=== PATIENT | female | born 1955 | race Caucasian/White ===

== ENCOUNTER → 2016-09-21 | Outpatient (CLI) | payer OTHER | END | disposition home or self-care (01) | LOC: C.LAB1850 14:25 | PROVIDERS: ATTEND Psychiatry & Neurology Neurology | DX: E53.8 Deficiency of other specified B group vitamins (principal) ==

== ENCOUNTER → 2017-03-29 | Outpatient (CLI) | payer OTHER ==
[2017-03-29 15:35] LABS: HEMATOCRIT 37.7 % (37-47); MEAN CORPUSCULAR HEMOGLOBIN 28.3 pg (25-34); MEAN CORPUSCULAR HGB CONC 33.7 g/dl (32-36); MEAN PLATELET VOLUME 10.3 fL (7.4-10.4); PLATELET COUNT 242 K/uL (130-400); RED BLOOD COUNT 4.49 M/uL (4.2-5.4); WHITE BLOOD COUNT 4.23 K/uL (4.8-10.8)
[2017-03-29 16:01] LABS: ALT/SGPT 23 U/L (12-78); AST/SGOT 16 U/L (15-37); BLOOD UREA NITROGEN 16 mg/dl (7-18); BUN/CREATININE RATIO 23.7 (10-20); CALCIUM 8.5 mg/dl (8.5-10.1); CARBON DIOXIDE 26 mmol/L (21-32); CHLORIDE 109 mmol/L (98-107); CREATININE 0.68 mg/dl (0.60-1.20); GLUCOSE 82 mg/dl (70-99); POTASSIUM 3.9 mmol/L (3.5-5.1); SODIUM 142 mmol/L (136-145)
[2017-03-29 16:06] LABS: ALKALINE PHOSPHATASE 93 U/L (45-117); CHOLESTEROL 173 mg/dl (0-200); CHOLESTEROL/HDL RATIO 3.8; HDL CHOLESTEROL 46 mg/dl; LDL CHOLESTEROL CALCULATED 95 mg/dl; TRIGLYCERIDES 160 mg/dl (0-150); VERY LOW DENSITY LIPOPROT CALC 32 mg/dl
== END | disposition home or self-care (01) ==
LOC: C.LAB1850 14:02
PROVIDERS: ATTEND Family Medicine
DX: I10 Essential (primary) hypertension (principal); E78.5 Hyperlipidemia, unspecified; E55.9 Vitamin D deficiency, unspecified; E53.8 Deficiency of other specified B group vitamins

== ENCOUNTER 2018-10-18 20:35 | Inpatient (IN) ==
[2018-10-18] MEDS ORDERED: ALBUT/IPRATROP 3MG/0.5MG NEB 3 ML VIAL INH STA (21:05)
[2018-10-18] MEDS ORDERED: methylPREDNISolone 125 MG/2 ML VIAL IV STA (21:05)
[2018-10-18 21:34] LABS: Basophils # (auto) 0.02 K/uL (0-0.2); Basophils % (auto) 0.2 %; Eosinophils # (auto) 0.05 K/uL (0-0.5); Eosinophils % (auto) 0.6 %; Hematocrit (blood only) 38.4 % (37-47); Hemoglobin 12.8 g/dL (12.0-16.0); Immature Granulocytes # (auto) 0.03 K/uL (0.00-0.02); Immature Granulocytes % (auto) 0.3 %; Lymphocytes # (auto) 0.49 K/uL (1.2-3.4); Lymphocytes % (auto) 5.7 %; Mean Corpuscular Hgb Conc 33.3 g/dL (32-36); Mean Corpuscular Volume 84.2 fL (80-100); Mean Platelet Volume 9.8 fL (7.4-10.4); Monocytes # (auto) 0.28 K/uL (0.11-0.59); Monocytes % (auto) 3.3 %; Neutrophils # (auto) 7.71 K/uL (1.4-6.5); Neutrophils % (auto) 89.9 %; Platelet Count 191 K/uL (130-400); RDW Coefficient of Variation 15.1 % (11.5-14.5); RDW Standard Deviation 46.7 fL (36.4-46.3); Red Blood Count 4.56 M/uL (4.2-5.4); White Blood Count 8.58 K/uL (4.8-10.8)
[2018-10-18 21:45] LABS: INR 1.9 (0.9-1.1); Partial Thromboplastin Ratio 1.3; Partial Thromboplastin Time 34.9 Seconds (21.0-31.0)
--- NOTE | 2018-10-18 21:45 | XRay Report ---
XR chest 1V portable HISTORY: Dyspnea COMPARISON: None. FINDINGS: The cardiac silhouette is mildly enlarged. Calcified right peritracheal lymph nodes are not ed. No focal lung consolidations to suggest pneumonia. Mild central pulmonary vascular congestion wit hout overt edema. A few bibasilar linear densities favor scarring or atelectasis. IMPRESSION: Cardiomegaly with mild central pulmonary vascular congestion. Electronically signed by: Luis Felipe Thomas M.D. 10/18/2018 9:44 PM
[2018-10-18 21:55] LABS: Alanine Aminotransferase 25 U/L (12-78); Albumin Level 3.7 gm/dl (3.4-5.0); Aspartate Aminotransferase 17 U/L (15-37); BUN Creatinine Ratio 18.9 (10-20); Blood Urea Nitrogen 16 mg/dl (7-18); Calcium 8.9 mg/dl (8.5-10.1); Carbon Dioxide 26 mmol/L (21-32); Chloride 107 mmol/L (98-107); Creatinine Clr Calc Pharmacy 88.8 ml/min; Est GFR (Non-African American) 75.1; Glucose 105 mg/dl (70-99); Magnesium 2.2 mg/dl (1.8-2.4); Potassium 3.9 mmol/L (3.5-5.1); Sodium 139 mmol/L (136-145)
[2018-10-18 21:59] LABS: Alkaline Phosphatase 90 U/L (45-117); Bilirubin,Total 0.8 mg/dl (0.2-1); Globulin 3.7 gm/dl (2.5-4.0); Total Protein 7.4 gm/dl (6.4-8.2); Troponin I < 0.015 ng/ml (0-0.045)
[2018-10-18] MEDS ORDERED: OPTIRAY 320 125ml IV PRN (23:28)
[2018-10-18] MEDS ORDERED: cefTRIAXone SODIUM 1,000 MG/50 ML BAG IV STA (23:48)
[2018-10-18] MEDS ORDERED: AZITHROMYCIN 500 MG in DEXTROSE 5% 250 ML IV ONE (23:48)
--- NOTE | 2018-10-19 00:32 | History & Physical Report ---
Date of Service October 19, 2018 Assessment & Plan (1) Pneumonia: 63 y/o F Hx paroxysmal AF, HTN, obese. She describes sinus congestion for a few weeks. Today she developed a cough and mild SOB and presented to an urgent care center for evaluation. When at the clinic she developed a hot fla sh. She states that this is not unusual for her and when this happens, she tends to lie down on the floor to cool off. Despite being at the urgent care center, she employed the same technique. This created some alarm at the clinic and she was diverted to the ER via ambulance. It was noted that her oxygen saturation was in the high 80s. She does believe she had a fever. She denies CP but does state that she had a run of AF the prior evening. A CXR did not reveal any acute abnormalities. A CTA was obtained due to her hypoxia and taking into consideration a recent trip to [place]. This did not reveal a PE, which is not entirely surprising considering she takes Coumadin daily, however, a RUL infiltrate became apparent. The pot had markedly improved following a few neb treatments in the ER. DC was considered, however, her oxygen saturation came down to 87% when she was ambulated around the ER. She also described some lightheadedness with exertion. 1) Pneumonia with hypoxia - placed on Abx, scheduled nebs, 02 protocol. Would check a walking pulse ox daily prior to decision on DC 2) Paroxysmal AF - sinus on admission - INR 1.9 - cont Coumadin, Metoprolol Full code - Coumadin prophylaxis Total time for this admit including review of labs, meds, imaging, records - discussion with pt and ER attending - 38 min Present on Admission?: Yes (2) Hypoxia: Present on Admission?: Yes History of Present Illness Chief Complaint: Cough, SOB, hot flash Primary Care Provider: NO PCP 63 y/o F Hx paroxysmal AF, HTN, obese. She describes sinus congestion for a few weeks. Today she developed a cough and mild SOB and presented to an urgent care center for evaluation. When at the clinic she developed a hot flash. She states that this is not unusual for her and when this happens, she tends to lie down on the floor to cool off. Despite being at the urgent care center, she employed the same technique. This created some alarm at the clinic and she was diverted to the ER via ambulance. It was noted that her oxygen saturation was in the high 80s. She does believe she had a fever. She denies CP but does state that she had a run of AF the prior evening. A CXR did not reveal any acute abnormalities. A CTA was obtained due to her hypoxia and taking into consideration a recent trip to [place]. This did not reveal a PE, which is not entirely surprising considering she takes Coumadin daily, however, a RUL infiltrate became apparent. The pot had markedly improved following a few neb treatments in the ER. DC was considered, however, her oxygen saturation came down to 87% when she was ambulated around the ER. She also described some lightheadedness with exertion. PMH: 1) Paroxysmal AF 2) HTN 3) Morbid obesity Surgical: 1) Tonsillectomy 2) Ex lap due to enlarged ovary Social: Does not drink or smoke Family: Father - believed due to [place] Mother due to CHF Allergies Allergy/AdvReac Type Severity Reaction Status Date / Time clonazepam Allergy Unknown Unknown Verified 10/18/18 23:49 doxycycline Allergy Unknown Unknown Verified 10/18/18 23:50 moxifloxacin Allergy Unknown Unknown Verified 10/18/18 23:51 Home Medications Home Medications Medication Instructions Recorded Confirmed Type Ortho Biotic 20 units PO Q2D 10/18/18 10/19/18 History amlodipine-benazepril 1 cap PO DAILY 10/18/18 10/18/18 History aspirin 81 mg PO DAILY 10/18/18 10/18/18 History coQ10 (ubiquinol) 100 mg PO BID 10/18/18 10/18/18 History ferrous sulfate 325 mg PO DAILY 10/18/18 10/18/18 History metoprolol succinate 50 mg PO DAILY 10/18/18 10/18/18 History scopolamine base [Transderm-Scop] 1.5 mg TRANSDERMAL Q72H PRN 10/18/18 10/18/18 History sertraline 150 mg PO DAILY 10/18/18 10/18/18 History warfarin 5 mg PO DAILY 10/18/18 10/18/18 History Arthro-8 Complex 1 dose pk PO DAILY 10/19/18 10/19/18 History mcbaoho-[id number]-aryj 1 tab PO DAILY 10/19/18 10/19/18 History Past Med/Surg History Medical History Asthma Eczema Social History Preferred Language: Palestinian marital status: Current Living Situation: Spouse Feels Safe at Home: Yes Smoking Status: Never smoker Review of Systems Review of Systems: Gen: Possible fever and hot flash as per HPI - no night sweats, rigors, fatigue, malaise, weight loss/gain ENT: + congestion - no throat pain, hearing loss Eyes: Denies acute visual changes CV: Denies CP, palpitations Pulmonary: SOB, cough GI: Denies N/V, diarrhea, constipation Neuro: Denies acute or unilateral weakness, acute gait impairment, headache or acute visual changes Musculoskeletal: Denies joint pain, inflammation Endocrine: Denies polydipsia, polyuria Skin: Denies acute rashes or ulcers Physical Exam Physical Exam: General: AAO x 3, no distress ENT: No erythema or exudates, no thrush Eyes: BUD, EOMI Head and neck: Normocephalic, atraumatic, No JVD, neck is supple. Chest/heart: Nontender, S1,2, RRR, no murmurs, no gallops Lungs: CTAB, no wheezing or crackles Abdomen: Nontender, nondistended, BS+ Neuro: AAO x 3, speech is clear, no unilateral weakness or loss of sensation, co ordination intact Musculoskeletal: No joint inflammation, muscle tenderness, FROM Skin: No acute rashes or ulcers Extremities: No clubbing, cyanosis, edema Results & Data Vital Signs (Past 12 Hours) Vital Signs Temp Pulse Pulse Pulse Resp Resp BP 10/19/18 00:15 76 10/19/18 00:05 108 H 20 10/18/18 22:24 80 20 10/18/18 21:11 10/18/18 20:45 99.3 F 71 20 130/70 BP Pulse Ox Pulse Ox 10/19/18 00:15 91 10/19/18 00:05 89 L 10/18/18 22:24 140/69 95 10/18/18 21:11 96 10/18/18 20:45 97 (1) Pneumonia Laterality: right Lung location: upper lobe of lung Pneumonia type: due to unspecified organism Qualified Code(s): J18.1 - Lobar pneumonia, unspecified organism
--- NOTE | 2018-10-19 00:33 | Emergency Department Note ---
Entered by Noel Bunch acting as a scribe for ED Provider Note CHIEF COMPLAINT: Nausea/Cough/SOB HISTORY OF PRESENT ILLNESS: The patient is a 63 year old female who presents to the Emergency Room with complaints of an intermittent cough and nausea. She states that her cough started a couple of weeks ago and she subsequently became nauseated today. She also notes some difficulty breathing and shortness of breath. She notes a history of asthma and adds that she has been using inhalers at home. She denies any chest pain. The patient notes that she has been traveling to [place] with her granddaughter recently who was recently diagnosed with Kelley Fever. The patient was referred to the ED from Urgent Care this evening. Report from EMS states that Urgent Care called for 911 as the patient had her shirt off and was laying on the floor. The patient confirms that story and states that she too k her shirt "mostly off" and laid on the ground as she got very "hot and flushed." She notes that she would normally do this at home if she got suddenly hot. The patient notes a history of Eczma and notes that her chest has been very itchy recently. Pt denies LOC, headache, visual changes, neck pain, vomiting, abdominal pain, back pain, melena, hematochezia, urinary symptoms, numbness, weakness, lymphadenopathy, or other complaints. REVIEW OF SYSTEMS: See HPI for pertinent positives and negatives. A total of ten systems were reviewed and were otherwise negative. PMHx/PSHx: Asthma Eczma SOCIAL HISTORY: Patient lives at home with . PHYSICAL EXAM: GENERAL: Awake, alert, mildly ill-appearing, in no distress HENT: Normocephalic, atraumatic. Oropharynx unremarkable. EYES: PERRL. Normal conjunctiva. Sclera non-icteric. NECK: Inspection normal. Non-tender. Supple. No nuchal rigidity. FROM. No masses. RESPIRATORY: Diminished breath sounds noted, coarse cough pressent. No wheezes. No rales. Increased respiratory effort noted. CARDIAC: Normal rate. Normal rhythm. No murmurs. No rubs. Extremities warm and well perfused. Pulses equal. No JVD. GI: Soft, non-distended. No tenderness to palpation. No rebound or guarding. No masses. RECTAL: Deferred. MUSCULOSKELETAL: Atraumatic. Chest examination reveals no tenderness. The back is symmetrical on inspection without obvious abnormality. There is no CVA tenderness to palpation. No joint edema. LOWER EXTREMITIES: Calves are equal size bilaterally and non-tender. No edema. No discoloration. NEURO: Normal sensorium. No sensory or motor deficits noted. SKIN: Eczematous-like rash on the chest and upper extremities. EMERGENCY DEPARTMENT COURSE: 2052: The patient was evaluated in room C4, and a complete history and physical examination were performed. 7: I reviewed the patient's case with Dr. Arshad - [facility]. He will evaluate the patient for further management. MEDICAL DECISION MAKING: Triage Nursing notes reviewed and agree them. Additional history obtained from the family. The patient's history was concerning for shortness of breath. Differential diagnosis: Etiologies such as pneumonia, COPD, reactive airway disease, CHF, cardiac i schemia, pulmonary embolism, pneumothorax, musculoskeletal, infections, gastrointestinal, as well as others were entertained. Physical examination: As above. The patient was requiring supplemental oxygen as she dipped down into the 87% range. ER treatment provided: Cardiac monitoring Supplemental oxygen DuoNeb Solu-Medrol On reassessment the patient felt better. IV Rocephin IV Zithromax Diagnostic interpretation by me: The electrocardiogram was negative for pathologic change. The labs revealed an unremarkable CBC and chemistry panel. INR slightly subtherapeutic. Troponin negative. Imaging studies: Chest x-ray performed without evidence of acute disease. CT PE study performed. No pulmonary embolus however there was a right upper lobe pneumonia noted. Consultation: A consultation was placed with the hospitalist. The case was discussed and diagnostics were reviewed. The patient was evaluated in the ER for further treatment. IMPRESSION: Pneumonia Hypoxia PLAN: Admit to [facility] Hospitalist service. The scribe's documentation has been prepared under my direction and personally reviewed by me in its entirety. I confirm that the note above accurately reflects all work, treatment, procedures, and medical decision making performed by me. Impression & Plan Pneumonia, Hypoxia Past Med/Surg History Medical History Asthma Eczema Social History Preferred Language: Maori marital status: Current Living Situation: Spouse Feels Safe at Home: Yes Smoking Status: Never smoker Results & Data Vital Signs Vital Signs - 24 hr 10/18/18 20:45 10/18/18 21:11 10/18/18 22:24 Temperature 37.4 C Temperature Source Oral Sepsis Recent Fever Within 48 Hours No Sepsis New/Unexplained Change in Mental Status No Sepsis Action Taken by Nursing No Action Required Pulse Rate 71 Pulse Rate [Apical] 80 Pulse Rate [Exercises] Respiratory Rate 20 20 Respiratory Rate [Exercises] Blood Pressure 130/70 Blood Pressure [Right Arm] 140/69 Blood Pressure Mean 90 Blood Pressure Mean [Right Arm] 92 Pulse Oximetry 97 96 95 Pulse Oximetry [Exercises] Oxygen Delivery Method Room Air Nasal Cannula Nasal Cannula Oxygen Flow Rate 2 10/19/18 00:05 10/19/18 00:15 Temperature Temperature Source Sepsis Recent Fever Within 48 Hours Sepsis New/Unexplained Change in Mental Status Sepsis Action Taken by Nursing Pulse Rate Pulse Rate [Apical] 76 Pulse Rate [Exercises] 108 H Respiratory Rate Respiratory Rate [Exercises] 20 Blood Pressure Blood Pressure [Right Arm] Blood Pressure Mean Blood Pressure Mean [Right Arm] Pulse Oximetry 91 Pulse Oximetry [Exercises] 89 L Oxygen Delivery Method Room Air Room Air Oxygen Flow Rate Home Medications Current Medication List: was personally reviewed by me Laboratory Data Attestation: I reviewed the patient's lab results. Result diagrams: 10/18/18 21:17 10/18/18 21:17 Lab Results 10/18/18 10/18/18 10/18/18 Range/Units 21:17 21:17 21:17 WBC 8.58 (4.8-10.8) K/uL RBC 4.56 (4.2-5.4) M/uL Hgb 12.8 (12.0-16.0) g/dL Hct 38.4 (37-47) % MCV 84.2 (80-100) fL MCH 28.1 (25-34) pg MCHC 33.3 (32-36) g/dL RDW Std Deviation 46.7 H (36.4-46.3) fL RDW Coeff of Michelle 15.1 H (11.5-14.5) % Plt Count 191 (130-400) K/uL MPV 9.8 (7.4-10.4) fL Immature Gran % (Auto) 0.3 % Neut % (Auto) 89.9 % Lymph % (Auto) 5.7 % Wilkinson % (Auto) 3.3 % Eos % (Auto) 0.6 % Baso % (Auto) 0.2 % Immature Gran # (Auto) 0.03 H (0.00-0.02) K/uL Neut # (Auto) 7.71 H (1.4-6.5) K/uL Lymph # (Auto) 0.49 L (1.2-3.4) K/uL Wilkinson # (Auto) 0.28 (0.11-0.59) K/uL Eos # (Auto) 0.05 (0-0.5) K/uL Baso # (Auto) 0.02 (0-0.2) K/uL PT 19.0 H (9.0-12.0) Seconds INR 1.9 H (0.9-1.1) APTT 34.9 H (21.0-31.0) Seconds PTT Ratio 1.3 Sodium 139 (136-145) mmol/L Potassium 3.9 (3.5-5.1) mmol/L Chloride 107 (98-107) mmol/L Carbon Dioxide 26 (21-32) mmol/L Anion Gap 6.0 (3-11) BUN 16 (7-18) mg/dl Creatinine 0.82 (0.6-1.2) mg/dl Est Cr Clr Drug Dosing 88.8 ml/min Est GFR ( Amer) 87.0 Est GFR (Non-Af Amer) 75.1 BUN/Creatinine Ratio 18.9 (10-20) Glucose 105 H (70-99) mg/dl POC Lactic Acid Bogdan (0.90-1.70) mmol/L Calcium 8.9 (8.5-10.1) mg/dl Magnesium 2.2 (1.8-2.4) mg/dl Total Bilirubin 0.8 (0.2-1) mg/dl AST 17 (15-37) U/L ALT 25 (12-78) U/L Alkaline Phosphatase 90 (45-117) U/L Troponin I < 0.015 (0-0.045) ng/ml Total Protein 7.4 (6.4-8.2) gm/dl Albumin 3.7 (3.4-5.0) gm/dl Globulin 3.7 (2.5-4.0) gm/dl Albumin/Globulin Ratio 1.0 (0.9-2) 10/18/18 Range/Units 21:30 WBC (4.8-10.8) K/uL RBC (4.2-5.4) M/uL Hgb (12.0-16.0) g/dL Hct (37-47) % MCV (80-100) fL MCH (25-34) pg MCHC (32-36) g/dL RDW Std Deviation (36.4-46.3) fL RDW Coeff of Michelle (11.5-14.5) % Plt Count (130-400) K/uL MPV (7.4-10.4) fL Immature Gran % (Auto) % Neut % (Auto) % Lymph % (Auto) % Wilkinson % (Auto) % Eos % (Auto) % Baso % (Auto) % Immature Gran # (Auto) (0.00-0.02) K/uL Neut # (Auto) (1.4-6.5) K/uL Lymph # (Auto) (1.2-3.4) K/uL Wilkinson # (Auto) (0.11-0.59) K/uL Eos # (Auto) (0-0.5) K/uL Baso # (Auto) (0-0.2) K/uL PT (9.0-12.0) Seconds INR (0.9-1.1) APTT (21.0-31.0) Seconds PTT Ratio Sodium (136-145) mmol/L Potassium (3.5-5.1) mmol/L Chloride (98-107) mmol/L Carbon Dioxide (21-32) mmol/L Anion Gap (3-11) BUN (7-18) mg/dl Creatinine (0.6-1.2) mg/dl Est Cr Clr Drug Dosing ml/min Est GFR ( Amer) Est GFR (Non-Af Amer) BUN/Creatinine Ratio (10-20) Glucose (70-99) mg/dl POC Lactic Acid Bogdan 1.17 (0.90-1.70) mmol/L Calcium (8.5-10.1) mg/dl Magnesium (1.8-2.4) mg/dl Total Bilirubin (0.2-1) mg/dl AST (15-37) U/L ALT (12-78) U/L Alkaline Phosphatase (45-117) U/L Troponin I (0-0.045) ng/ml Total Protein (6.4-8.2) gm/dl Albumin (3.4-5.0) gm/dl Globulin (2.5-4.0) gm/dl Albumin/Globulin Ratio (0.9-2) Administered Medications Ioversol (Optiray 320 125ml) 125 ml IV ONCE PRN PRN Reason: Interaction Checking Stop: 10/22/18 23:27 Last Admin: 10/18/18 23:28 Dose: 94 ml Documented by: [id number] Discontinued Medications Albuterol (Duoneb) 3 ml INH NOW STA Stop: 10/18/18 21:06 Last Admin: 10/18/18 21:30 Dose: 3 ml Documented by: [id number] Ceftriaxone Sodium (Rocephin) 1,000 mg in 50 mls @ 100 mls/hr IV NOW STA Stop: 10/19/18 00:17 Last Admin: 10/19/18 00:13 Dose: 100 mls/hr Documented by: [id number] Methylprednisolone (Solumedrol) 125 mg IV NOW STA Stop: 10/18/18 21:06 Last Admin: 10/18/18 21:30 Dose: 125 mg Documented by: [id number] Imaging Data Radiologist's Impression: XR chest 1V portable HISTORY: Dyspnea COMPARISON: None. FINDINGS: The cardiac silhouette is mildly enlarged. Calcified right peritracheal lymph nodes are noted. No focal lung consolidations to suggest pneumonia. Mild central pulmonary vascular congestion without overt edema. A few bibasilar linear densities favor scarring or atelectasis. IMPRESSION: Cardiomegaly with mild central pulmonary vascular congestion. Electronically signed by: Luis Felipe Thomas M.D. 10/18/2018 9:44 PM CTA CHEST: No pericardial effusion. Mediastinal and hilar adenopathy. Pneumonia involving the anterior aspect of the right upper lobe. Small hiatal hernia. Radiologist: Joey Ortega MD ECG Data Attestation: I personally reviewed and interpreted this ECG as follows: Indication: SOB/dyspnea Rate (beats per minute): 69 Rhythm: normal sinus Findings: + other (Biatrial enlargement); no PAC, no PVC, no ST depression, no ST elevation and no acute ischemic change Discharge Plan Visit Data Chief Complaint: Flu Like Symptoms Stated Complaint: FLU SX, FEVER ED Provider: Ross Rodríguez Discharge Problem: Pneumonia, Hypoxia Patient Disposition: Being Evaluated by Hospitalist Forms Stand Alone Forms: My [facility] Prescriptions Prescriptions: No Action ferrous sulfate 325 mg (65 mg iron) Tablet 325 mg PO DAILY RF: 0 amlodipine-benazepril 5-20 mg Capsule 1 cap PO DAILY RF: 0 sertraline 100 mg Tablet 150 mg PO DAILY RF: 0 metoprolol succinate 50 mg Tablet Extended Release 24 Hr 50 mg PO DAILY RF: 0 warfarin 5 mg Tablet 5 mg PO DAILY RF: 0 aspirin 81 mg Tablet,Delayed Release (Dr/Ec) 81 mg PO DAILY RF: 0 scopolamine base [Transderm-Scop] 1 mg over 3 days Patch 3 Day 1.5 mg TRANSDERMAL Q72H PRN (Reason: travel only) RF: 0 coQ10 (ubiquinol) 100 mg Capsule 100 mg PO BID RF: 0 Ortho Biotic 20 units PO Q2D RF: 0 Arthro-8 Complex 1 dose pk PO DAILY RF: 0 [id number]-[id number]-[id number] 333-133-8.3 mg Tablet 1 tab PO DAILY RF: 0 Referrals Referrals: PCP,NO [Primary Care Provider] - Discharge Problem: Pneumonia Qualifiers: Pneumonia type: due to unspecified organism Laterality: right Lung location: upper lobe of lung Qualified Code(s): J18.1 - Lobar pneumonia, unspecified organism The scribe's documentation has been prepared under my direction and personally reviewed by me in its entirety. I confirm that the note above accurately reflects all work, treatment, procedures, and medical decision making performed by me.
[2018-10-19] MEDS ORDERED: ZOLPIDEM TARTRATE 5 MG TAB PO PRN (01:32)
[2018-10-19] MEDS ORDERED: ALBUTEROL 0.083% NEBU SOLN 3 ML VIAL NEB PRN (01:32)
[2018-10-19] MEDS ORDERED: AZITHROMYCIN 500 MG in DEXTROSE 5% 250 ML IV SCH ×2 (01:32→21:00)
[2018-10-19] MEDS ORDERED: ALUMINUM/MAGNESIUM SUSP 30 ML UDC PO PRN (01:32)
[2018-10-19] MEDS ORDERED: MAGNESIUM HYDROXIDE SUSP 30 ML UDC PO PRN (01:32)
[2018-10-19] MEDS ORDERED: cefTRIAXone SODIUM 1,000 MG/50 ML BAG IV SCH (01:32)
--- NOTE | 2018-10-19 06:50 | CT Scan Report ---
CT angio chest PE protocol CLINICAL HISTORY: 63 years-old Female presenting with shortness of breath, hypoxia, recent travel adia g distance travel, clinical concern for pulmonary bolus. TECHNIQUE: Multidetector CT angiography of the chest was performed after administration of intravenou s contrast. 3-D volumetric and/or maximum intensity projection (MIP) images were subsequently reconst ructed for review. IV contrast: 94 mL of Optiray 320. One or more dose lowering techniques were used consistent with the principles of ALARA (as low as reasonably achievable), including automatic exposu re control, mA or kV adjustment to individual patient size, and/or use of iterative reconstruction. COMPARISON: Chest x-ray performed earlier the same day. CT DOSE (mGy.cm): The estimated cumulative dose is 793.51 mGy.cm. FINDINGS: Hat And Cap Drying Room Attendant topogram: Unremarkable. Pulmonary vasculature: The study is suboptimal for the assessment of the pulmonary vascular tree secondary to timing of the contrast bolus and respiratory motion artifact. Allowing for limited image quality, no central fillin g defect to suggest pulmonary embolus. Main pulmonary artery is not enlarged. No flattening of the in terventricular septum. No intracardiac filling defect. No reflux of contrast into the hepatic veins. Remaining chest: Soft tissues: Normal thyroid and thoracic inlet. Enlarged mediastinal and bilateral hilar lymph nodes . An index node in the left paratracheal/aortopulmonary window region measures 1.3 cm in short axis. Atherosclerosis of the aorta. Normal heart size. Trace coronary artery calcification. No pericardial or pleural effusion. Hepatic steatosis. Small sliding type hiatal hernia. Lungs and airways: No pneumothorax. Central airways patent allowing for the expiratory phase of respi ration. Mild bronchial wall thickening diffusely. Pulmonary arteries mildly enlarged relative to becky cent bronchi. Prominent mosaic attenuation throughout the lungs suggesting small airways disease. No interlobular septal thickening. Extensive patchy groundglass and solid consolidation in the anterior segment of the right upper lobe. There is also a lesser degree of patchy groundglass opacity elsewher e. The more nodular regions of groundglass opacity are also likely related to this process rather erica n representing a separate groundglass nodule (for example series 4 image 261). Bibasilar atelectasis greater on the right. Musculoskeletal: Degenerative changes of the spine. IMPRESSION: 1. Allowing for suboptimal image quality, no evidence of pulmonary embolus. 2. Right upper lobe pneumonia with a minimal degree of patchy infiltrates elsewhere. 3. Groundglass nodular appearance of some of the infiltrates warrants follow-up. However, this is hi ghly likely to be related to the infectious process rather than representing a separate nodule. 4. Mediastinal and bilateral hilar lymphadenopathy. This is most likely reactive. Follow-up should B E obtained to ensure resolution. 5. Hepatic steatosis. Electronically signed by: Abiel Waller M.D. 10/19/2018 6:49 AM
[2018-10-19] MEDS: ALBUT/IPRATROP 3MG/0.5MG NEB 3 ML VIAL NEB SCH ×4 (06:56→19:00)
[2018-10-19] MEDS: SERTRALINE HCL 100 MG TABLET PO SCH (09:02)
[2018-10-19] MEDS: METOPROLOL SUCC 50MG EXT REL TAB PO SCH (09:02)
[2018-10-19] MEDS: AMLODIPINE BESYLATE 5 MG TAB PO SCH (09:03)
[2018-10-19] MEDS: ENALAPRIL MALEATE 10 MG TAB PO SCH (09:03)
[2018-10-19] MEDS: ASPIRIN 81 MG ECTAB PO SCH (09:03)
[2018-10-19] MEDS: WARFARIN SOD 5 MG TAB PO SCH (15:58)
[2018-10-19 20:31] LABS: Appearance Urine Cloudy (Clear); Bacteria Urine Automated Negative (Negative); Bilirubin Urine Negative (Negative); Blood Urine Negative (Negative); Color Urine Yellow; Epithelial Cell Urine Auto >30 /lpf (0-5); Glucose Urine UA Negative (Negative); Ketones Urine Trace (Negative); Leukocyte Esterase Urine 2+ (Negative); Nitrite Urine Negative (Negative); Protein Urine Negative (Negative); RBC Urine Automated 0-4 /hpf (0-4); Specific Gravity Urine 1.031 (1.000-1.030); Urobilinogen Urine Negative (Negative); pH Urine 5.5 (4.5-7.5)
[2018-10-19] MEDS: AZITHROMYCIN 250 MG TAB PO SCH (20:37)
[2018-10-19] MEDS: cefTRIAXone SODIUM 2,000 MG in DEXTROSE 5% 50 ML IV SCH (20:43)
[2018-10-19] MEDS ORDERED: cefTRIAXone SODIUM 1,000 MG in DEXTROSE 5% 50 ML IV SCH (21:00)
[2018-10-19] MEDS: ACETAMINOPHEN 325 MG TAB PO PRN (21:32)
[2018-10-20] MEDS: ACETAMINOPHEN 325 MG TAB PO PRN (04:05)
[2018-10-20] MEDS ORDERED: METOPROLOL TARTRATE 1 MG/ML VIAL IV STA ×4 (04:38→17:23)
--- NOTE | 2018-10-20 06:01 | Progress Note ---
Date of Service October 20, 2018 Subjective Pt had episode of AFib with RVR around 4:30 this AM Pt had hx of pAFib Pt was asymptomatic, denied any sob, palpitations or cp Dose of lopressor 5mg IV was ordered with improvement in HR from 150-130 Given HR remained elevated another dose of lopressor 5mg IV was ordered Results & Data Vital Signs (Past 12 Hours) Vital Signs Temp Pulse Pulse Resp BP Pulse Ox 10/20/18 05:42 37.4 C 153 H 125/85 10/20/18 05:01 136 H 124/81 10/20/18 04:53 155 H 120/78 10/20/18 04:16 80 18 141/81 H 92 10/20/18 03:55 37.7 C H 10/20/18 00:00 66 18 93 10/19/18 23:21 37.7 C H 76 18 118/70 92 10/19/18 22:55 37.5 C 10/19/18 22:23 38.1 C H 10/19/18 21:30 38.1 C H 10/19/18 19:53 37.1 C 84 20 149/65 H 90 10/19/18 19:02 83 20 87 L 10/19/18 18:49 37.4 C 10/19/18 18:21 89 L Resident Activity Tracking Resident Involvement: Resident Care Provided Care Provided: Adult Hospital Medicine
[2018-10-20 06:15] LABS: INR 1.7 (0.9-1.1); Prothrombin Time 17.2 Seconds (9.0-12.0)
[2018-10-20] MEDS: ALBUT/IPRATROP 3MG/0.5MG NEB 3 ML VIAL NEB SCH (07:37)
[2018-10-20] MEDS: METOPROLOL SUCC 50MG EXT REL TAB PO SCH (07:41)
[2018-10-20] MEDS: SERTRALINE HCL 100 MG TABLET PO SCH (07:41)
[2018-10-20] MEDS: AZITHROMYCIN 250 MG TAB PO SCH (07:42)
[2018-10-20] MEDS: ASPIRIN 81 MG ECTAB PO SCH (07:42)
[2018-10-20] MEDS ORDERED: LEVALBUTEROL 1.25MG/0.5ML NEB NEB PRN (07:56)
[2018-10-20] MEDS: AMLODIPINE BESYLATE 5 MG TAB PO SCH (12:05)
[2018-10-20] MEDS: ENALAPRIL MALEATE 10 MG TAB PO SCH (12:05)
[2018-10-20] MEDS ORDERED: WARFARIN SOD 2.5 MG TAB PO SCH (16:00)
--- NOTE | 2018-10-20 16:07 | Cardiology Consultation ---
Date of Consultation October 20, 2018 Assessment & Plan (1) Atrial fibrillation: This patient has a known history of paroxysmal atrial fibrillation and developed atrial fibrillation while hospitalized for pneumonia. Her ventricular rates are quite high but she is relatively asymptomatic. We had a long discussion regarding options for treatment. She does appear to have fairly frequent episodes of atrial fibrillation and adopting a rhythm control strategy would be reasonable. However, she has some reservations about changing medical therapy and concerns regarding medical therapy in general. I think she would be served well by either dofetilide or dronedarone. Flecainide would be a possibility although given her age and comorbidities this would need to be used with caution. I do not think initiation of antiarrhythmic therapy during this hospitalization is warranted given the subtherapeutic nature of her INR. However, she converts spontaneously to sinus rhythm there would be an opportunity for initiation. I provided her with the names of these medicines she wishes to do some research before making a decision. In the short term, we could attempt more aggressive rate control with a diltiazem infusion. She went to wait few more hours to see if she would convert back to sinus rhythm. I think this is reasonable given her absence of symptoms and hemodynamic stability. She will likely return to a sinus rhythm within the next 24 hours. If she does not, I would employ diltiazem infusion rather than additional doses of metoprolol. She should be continued on her anticoagulation with warfarin. Aspirin can be discontinued. If she converts to a sinus rhythm she can be maintained on her usual outpatient medical regimen without change unless she requests initiation of antiarrhythmic therapy or discussion regarding rhythm control. I will be with the hospital for the next 2 days. If there are additional concerns regarding rhythm or rate control please contact the on-call biomed tech, Dr. Freddy Aragon. History of Present Illness Reason for Consultation: Atrial fibrillation Requesting Physician: Lincoln Attending Physician: Venancio Stark History of Present Illness The patient is a 63-year-old woman with a history of paroxysmal atrial fibrillation who recently developed atrial fibrillation. Recently the patient has been struggling with upper respiratory congestion. She presented to an outpatient urgent care with symptoms of congestion and cough. She was discovered to be hypoxic at that facility and sent to [facility] for evaluation. A CT PE protocol was performed to evaluate her symptoms and hypoxia and she was noted to have a right upper lobe infiltrate. She was admitted for treatment of pneumonia. Very early this morning the patient developed atrial fibrillation and associated high ventricular rates. The patient was aware of the arrhythmia. She generally has a few episodes of atrial fibrillation every month. These are characterized by sense of palpitation and tachycardia. She also has an element of activity intolerance that is fairly mild with atrial fibrillation. She states that performing her usual activities or extended walks will result in some dyspnea when she has atrial fibrillation. Occasionally she has some mild dizziness and lightheadedness. She has not felt pre syncopal or actually suffered syncope. She has no associated chest pain. Most her episodes will last less than 24 hours. She states she has had episodes which lasted 2-3 days. She knows that she has high ventricular rates during these episodes. In general she is an active individual was able to perform mild to moderate activity without limitation. She is able to ambulate without significant dyspnea most of the time. She is not describe overt orthopnea or paroxysmal nocturnal dyspnea. She has not had chest pain. She does feel that she is having more frequent episodes of atrial fibrillation perhaps of longer duration over the past few years. Allergies Allergy/AdvReac Type Severity Reaction Status Date / Time clonazepam Allergy Unknown Unknown Verified 10/18/18 23:49 doxycycline Allergy Unknown Unknown Verified 10/18/18 23:50 moxifloxacin Allergy Unknown Unknown Verified 10/18/18 23:51 Home Medications Home Medications Medication Instructions Recorded Confirmed Type Ortho Biotic 20 units PO Q2D 10/18/18 10/19/18 History amlodipine-benazepril 1 cap PO DAILY 10/18/18 10/18/18 History aspirin 81 mg PO DAILY 10/18/18 10/18/18 History coQ10 (ubiquinol) 100 mg PO BID 10/18/18 10/18/18 History ferrous sulfate 325 mg PO DAILY 10/18/18 10/18/18 History metoprolol succinate 50 mg PO DAILY 10/18/18 10/18/18 History scopolamine base [Transderm-Scop] 1.5 mg TRANSDERMAL Q72H PRN 10/18/18 10/18/18 History sertraline 150 mg PO DAILY 10/18/18 10/18/18 History warfarin 5 mg PO DAILY 10/18/18 10/18/18 History Arthro-8 Complex 1 dose pk PO DAILY 10/19/18 10/19/18 History gtmwbiz-[id number]-kjjg 1 tab PO DAILY 10/19/18 10/19/18 History Patient History Medical History Asthma Eczema Social History Preferred Language: Nepali Communication Ability: Effective [employer] Member Required: No Beliefs That Will Affect Care: None marital status: Current Living Situation: Spouse Other Information That Helps Us Care for You: No Feels Safe at Home: Yes Safety Concerns: Feels Safe At This Time Smoking Status: Never smoker Hx Alcohol Use: No Hx Substance Use: No Review of Systems Review of Systems: All systems reviewed & are unremarkable except as noted in HPI & below Currently she feels palpitations, but no chest pain. She continues to have a cough. She states that her breathing is somewhat improved since admission. Physical Exam Physical Exam: She is alert and oriented x3. Mood affect appear normal. She answered all questions appropriately. Obese HEENT: Sclerae are anicteric. Pupils are equal and reactive to light and accommodation. Extraocular movements were intact. Neuro: Cranial nerves intact Neck: Examination of the submandibular region did not reveal any significant lymphadenopathy. Carotids are palpable bilaterally and free of bruits on auscultation. There was no evidence of jugular venous distention. The thyroid was not enlarged. Lungs: Some reduced breath sounds on the right. She has coarse rhonchorous breath sounds with expiration. She has normal respiratory effort without use of accessory muscles. There is normal pulmonary excursion. Cardiac: Irregularly irregular and tachycardic. No murmurs. Abdomen: The abdomen was soft and nontender. Extremities: Patient has bilateral radial pulses that are equal in intensity. There is no evidence cyanosis or clubbing. There was no evidence of significant peripheral edema bilaterally. Skin: There are no rashes noted on examination today. Results & Data Vital Signs (Past 12 Hours) Vital Signs Temp Pulse Pulse Pulse Resp BP BP 10/20/18 15:13 37.7 C H 134 H 20 104/75 10/20/18 11:46 87 18 10/20/18 11:36 37.6 C H 119 H 16 128/78 10/20/18 11:05 128 H 128/78 10/20/18 07:38 104 H 10/20/18 07:35 134 H 118/79 04/26/19 07:29 37.2 C 153 H 22 92/65 L 10/20/18 06:35 130 H 128/78 10/20/18 06:09 132 H 113/73 10/20/18 05:42 37.4 C 153 H 125/85 10/20/18 05:01 136 H 124/81 10/20/18 04:53 155 H 120/78 10/20/18 04:16 80 18 141/81 H Pulse Ox 10/20/18 15:13 94 10/20/18 11:46 95 10/20/18 11:36 92 10/20/18 11:05 10/20/18 07:38 97 10/20/18 07:35 10/20/18 07:29 93 10/20/18 06:35 10/20/18 06:09 10/20/18 05:42 10/20/18 05:01 10/20/18 04:53 10/20/18 04:16 92 Laboratory Results Abnormal Lab Results 10/19/18 10/20/18 10/20/18 20:18 05:31 10:41 PT 17.2 H INR 1.7 H Troponin I < 0.015 Urine Color Yellow Urine Appearance Cloudy H Urine pH 5.5 Ur Specific [place] 1.031 H Urine Protein Negative Urine Glucose (UA) Negative Urine Ketones Trace H Urine Blood Negative Urine Nitrite Negative Urine Bilirubin Negative Urine Urobilinogen Negative Ur Leukocyte Esterase 2+ H Urine WBC (Auto) 10-30 H Urine RBC (Auto) 0-4 U Hyaline Cast (Auto) 5-10 H U Epithel Cells (Auto) >30 H Urine Bacteria (Auto) Negative Ur Renal Epithelial Cell Not Reportable Diagnostic Findings CT PE protocol obtained at the time admission revealed right upper lobe infiltrate. No evidence of pulmonary embolus Stress echocardiogram performed at [facility] in 2013 revealed preserved LV systolic function. No valvular disease was mentioned in the report. ECG Additional Comments: Atrial fibrillation rapid ventricular response.
[2018-10-20] MEDS: WARFARIN SOD 5 MG TAB PO SCH (16:21)
[2018-10-20] MEDS: cefTRIAXone SODIUM 2,000 MG in DEXTROSE 5% 50 ML IV SCH (20:33)
--- NOTE | 2018-10-20 21:52 | Hospitalist Progress Note ---
Date of Service October 20, 2018 Assessment & Plan (1) Pneumonia: 63 y/o F Hx paroxysmal AF, HTN, obese. She describes sinus congestion for a few weeks. Today she developed a cough and mild SOB and presented to an urgent care center for evaluation. When at the clinic she developed a hot fla sh. She states that this is not unusual for her and when this happens, she tends to lie down on the floor to cool off. Despite being at the urgent care center, she employed the same technique. This created some alarm at the clinic and she was diverted to the ER via ambulance. It was noted that her oxygen saturation was in the high 80s. She does believe she had a fever. She denies CP but does state that she had a run of AF the prior evening. A CXR did not reveal any acute abnormalities. A CTA was obtained due to her hypoxia and taking into consideration a recent trip to [place]. This did not reveal a PE, which is not entirely surprising considering she takes Coumadin daily, however, a RUL infiltrate became apparent. The pot had markedly improved following a few neb treatments in the ER. DC was considered, however, her oxygen saturation came down to 87% when she was ambulated around the ER. She also described some lightheadedness with exertion. 1) Pneumonia with hypoxia - placed on Abx, -Switched azithromycin to oral. Will continue IV ceftriaxone. -Patient continues to require oxygen. -Will continue IV steroids but will taper. 2) Paroxysmal AF - sinus on admission -Now in paroxysmal A. fib -Patient has required multiple doses of IV lopressor but HR remains elevated - cont Coumadin, Metoprolol -will monitor INR -consult cardio. -check trop for possible demand ischemia Full code - Coumadin prophylaxis Spent 45 minutes in management of patient (2) Hypoxia: Subjective 63 yo female reports that she continues to be complaining of a cough. She reports that her chest is loosening. She is concerned over her elevated heart rate. It has been elevated since early AM. Patient reports she normally has episodes where her HR is elevated, but it subsides in about 12 hours hours. Patient reports she does not like to take more medicine than needed. Review of Systems Review of Systems: Gen: Possible fever and hot flash as per HPI - no night sweats, rigors, fatigue, malaise, weight loss/gain ENT: + congestion - no throat pain, hearing loss Eyes: Denies acute visual changes CV: Denies CP, palpitations Pulmonary: SOB, cough GI: Denies Vomiting, diarrhea, constipation; is complaining of nausea. Neuro: Denies acute or unilateral weakness, acute gait impairment, headache or acute visual changes Musculoskeletal: Denies joint pain, inflammation Endocrine: Denies polydipsia, polyuria Skin: Denies acute rashes or ulcers Physical Exam Physical Exam: General: AAO x 3, no distress ENT: No erythema or exudates, no thrush Eyes: BUD, EOMI Head and neck: Normocephalic, atraumatic, No JVD, neck is supple. Chest/heart: Nontender, S1,2, RRR, no murmurs, no gallops Lungs: CTAB, no wheezing or crackles Abdomen: Nontender, nondistended, BS+ Neuro: AAO x 3, speech is clear, no unilateral weakness or loss of sensation, coordination intact Musculoskeletal: No joint inflammation, muscle tenderness, FROM Skin: No acute rashes or ulcers Extremities: No clubbing, cyanosis, edema Results & Data Vital Signs (Past 12 Hours) Vital Signs Temp Pulse Pulse Pulse Resp BP BP 10/20/18 19:00 37.4 C 107 H 20 113/76 10/20/18 17:37 119 H 116/84 10/20/18 17:22 116 H 10/20/18 16:45 132 H 10/20/18 15:13 37.7 C H 134 H 20 10/20/18 11:46 87 18 10/20/18 11:36 37.6 C H 119 H 16 10/20/18 11:05 128 H 128/78 BP Pulse Ox 10/20/18 19:00 95 10/20/18 17:37 10/20/18 17:22 116/84 94 10/20/18 16:45 10/20/18 15:13 104/75 94 10/20/18 11:46 95 10/20/18 11:36 128/78 92 10/20/18 11:05 (1) Pneumonia Laterality: right Lung location: upper lobe of lung Pneumonia type: due to unspecified organism Qualified Code(s): J18.1 - Lobar pneumonia, unspecified organism
[2018-10-21 02:29] LABS: INR 1.8 (0.9-1.1); Prothrombin Time 17.6 Seconds (9.0-12.0)
[2018-10-21] MEDS: SERTRALINE HCL 100 MG TABLET PO SCH (07:59)
--- NOTE | 2018-10-21 08:14 | Cardiology Progress Note ---
Date of Service October 21, 2018 Assessment & Plan (1) Atrial fibrillation: She continues in AF> Some higher rates. Minimally symptomatic. Feeling better overall. She will likely convert to sinus at some point. If her rates continue to be above 110 consistently I woudl consider starting a diltiazem infusion. Alternatively, an oral dose of metoprolol tartrate (25mg) might be effective. Subjective The patient claims to be feeling better. She has less dyspnea. No chest pain. Some palpitaitons. Review of Systems Review of Systems: Per HPI. Coughing up some blood-tinged sputum. Physical Exam Physical Exam: Alert. Oriented. Lungs: No rales, but coarse expiratory upper airway sounds. Cardiac: Irregularly irregular. Results & Data Vital Signs (Past 12 Hours) Vital Signs Temp Pulse Pulse Resp BP Pulse Ox 10/21/18 07:46 95/65 L 10/21/18 07:17 36.6 C 100 H 20 139/106 H 93 10/21/18 04:00 36.9 C 112 H 20 106/72 95 10/20/18 23:00 36.8 C 116 H 22 110/84 93 Laboratory Results Abnormal Lab Results 10/20/18 10/20/18 10/21/18 10:41 18:47 02:07 PT 17.6 H INR 1.8 H Troponin I < 0.015 < 0.015 10/21/18 02:07 PT INR Troponin I < 0.015 ECG Additional Comments: Continued AF.
[2018-10-21] MEDS ORDERED: METOPROLOL TARTRATE 1 MG/ML VIAL IV STA (08:18)
[2018-10-21] MEDS: AMLODIPINE BESYLATE 5 MG TAB PO SCH ×2 (08:30→08:42)
[2018-10-21] MEDS: ENALAPRIL MALEATE 10 MG TAB PO SCH (08:30)
[2018-10-21] MEDS: AZITHROMYCIN 250 MG TAB PO SCH (08:31)
[2018-10-21] MEDS: METOPROLOL SUCC 50MG EXT REL TAB PO SCH (08:31)
--- NOTE | 2018-10-21 09:08 | Hospitalist Progress Note ---
Date of Service October 21, 2018 Assessment & Plan (1) Pneumonia: 63 y/o F Hx paroxysmal AF, HTN, obese. She describes sinus congestion for a few weeks. Today she developed a cough and mild SOB and presented to an urgent care center for evaluation. When at the clinic she developed a hot fla sh. She states that this is not unusual for her and when this happens, she tends to lie down on the floor to cool off. Despite being at the urgent care center, she employed the same technique. This created some alarm at the clinic and she was diverted to the ER via ambulance. It was noted that her oxygen saturation was in the high 80s. She does believe she had a fever. She denies CP but does state that she had a run of AF the prior evening. A CXR did not reveal any acute abnormalities. A CTA was obtained due to her hypoxia and taking into consideration a recent trip to [place]. This did not reveal a PE, which is not entirely surprising considering she takes Coumadin daily, however, a RUL infiltrate became apparent. The pot had markedly improved following a few neb treatments in the ER. DC was considered, however, her oxygen saturation came down to 87% when she was ambulated around the ER. She also described some lightheadedness with exertion. 1) Pneumonia with hypoxia - placed on Abx, -Switched azithromycin to oral. Will continue IV ceftriaxone. -Patient continues to require oxygen. -Patient does appear to be improving, but is now in rapid a. fib. 2) Paroxysmal AF - sinus on admission -Now in rapid A. fib -Patient has required multiple doses of IV lopressor but HR remains elevated -Will start diltiazem today Iv drip. - cont Coumadin, Metoprolol -will monitor INR -consult cardio. -check trop for possible demand ischemia: markers are negative. Patient did not respond to lopressor Full code - Coumadin prophylaxis Spent 35 minutes in management of patient (2) Hypoxia: Subjective D/W nurse, she continues to be tachycardic throughout the night. Patient reports that this is unusual for her as she normally only has short episodes of A. Fib. Usually last 12 hours or less. She reports being open to taking a IV drip for her elevated heart rate. Patient reports that she is also breathing better. Review of Systems Review of Systems: All systems reviewed & are unremarkable except as noted in HPI & below Physical Exam Physical Exam: General: AAO x 3, no distress ENT: No erythema or exudates, no thrush Eyes: BUD, EOMI Head and neck: Normocephalic, atraumatic, No JVD, neck is supple. Chest/heart: Nontender, S1,2,irregularly irregular, no murmurs, no gallops Lungs: Rhonchi noted bilaterally. Abdomen: Nontender, nondistended, BS+ Neuro: AAO x 3, speech is clear, no unilateral weakness or loss of sensation, coordination intact Musculoskeletal: No joint inflammation, muscle tenderness, FROM Skin: No acute rashes or ulcers Extremities: No clubbing, cyanosis, edema Results & Data Vital Signs (Past 12 Hours) Vital Signs Temp Pulse Pulse Pulse Resp BP BP 10/21/18 08:39 163 H 113/79 10/21/18 08:28 113/79 10/21/18 07:46 95/65 L 10/21/18 07:17 36.6 C 100 H 20 139/106 H 10/21/18 04:00 36.9 C 112 H 20 106/72 10/20/18 23:00 36.8 C 116 H 22 110/84 Pulse Ox 10/21/18 08:39 10/21/18 08:28 10/21/18 07:46 10/21/18 07:17 93 10/21/18 04:00 95 10/20/18 23:00 93 (1) Pneumonia Laterality: right Lung location: upper lobe of lung Pneumonia type: due to unspecified organism Qualified Code(s): J18.1 - Lobar pneumonia, unspecified organism
[2018-10-21] MEDS: WARFARIN SOD 5 MG TAB PO SCH (15:30)
[2018-10-21] MEDS: dilTIAZem HCl 125 MG in DEXTROSE 5% 100 ML IV SCH (16:10)
[2018-10-21] MEDS ORDERED: WARFARIN SOD 2.5 MG TAB PO ONE (18:00)
[2018-10-21] MEDS: cefTRIAXone SODIUM 2,000 MG in DEXTROSE 5% 50 ML IV SCH (20:54)
[2018-10-22 06:25] LABS: INR 2.6 (0.9-1.1); Prothrombin Time 24.7 Seconds (9.0-12.0)
[2018-10-22] MEDS: SERTRALINE HCL 100 MG TABLET PO SCH (07:34)
[2018-10-22] MEDS: AZITHROMYCIN 250 MG TAB PO SCH (07:35)
[2018-10-22] MEDS: AMLODIPINE BESYLATE 5 MG TAB PO SCH (07:35)
[2018-10-22] MEDS: METOPROLOL SUCC 50MG EXT REL TAB PO SCH (07:35)
[2018-10-22] MEDS: ENALAPRIL MALEATE 10 MG TAB PO SCH (07:35)
[2018-10-22] MEDS ORDERED: predniSONE 20 MG TAB PO STA (13:56)
[2018-10-22] MEDS: WARFARIN SOD 5 MG TAB PO SCH (16:30)
[2018-10-22] MEDS: cefTRIAXone SODIUM 2,000 MG in DEXTROSE 5% 50 ML IV SCH (21:07)
[2018-10-22] MEDS: dilTIAZem HCl 125 MG in DEXTROSE 5% 100 ML IV SCH (21:14)
--- NOTE | 2018-10-22 21:29 | Hospitalist Progress Note ---
Date of Service October 22, 2018 Assessment & Plan (1) Pneumonia: 63 y/o F Hx paroxysmal AF, HTN, obese. She describes sinus congestion for a few weeks. Today she developed a cough and mild SOB and presented to an urgent care center for evaluation. When at the clinic she developed a hot fla sh. She states that this is not unusual for her and when this happens, she tends to lie down on the floor to cool off. Despite being at the urgent care center, she employed the same technique. This created some alarm at the clinic and she was diverted to the ER via ambulance. It was noted that her oxygen saturation was in the high 80s. She does believe she had a fever. She denies CP but does state that she had a run of AF the prior evening. A CXR did not reveal any acute abnormalities. A CTA was obtained due to her hypoxia and taking into consideration a recent trip to [place]. This did not reveal a PE, which is not entirely surprising considering she takes Coumadin daily, however, a RUL infiltrate became apparent. The pot had markedly improved following a few neb treatments in the ER. DC was considered, however, her oxygen saturation came down to 87% when she was ambulated around the ER. She also described some lightheadedness with exertion. 1) Pneumonia with hypoxia - placed on Abx, -Switched azithromycin to oral. Will continue IV ceftriaxone. -Patient is tapered offf oxygen today at rest. Will moniotr for 24 hours. -Patient does appear to be improving. No longer in A. fib Placed on prednisone taper. 2) Paroxysmal AF - sinus on admission -Was in A. fib on 10/20 and 10/21 -Patient has required multiple doses of IV lopressor but improved on diltiazem drip. Likely this was attributed to her nebs. -Off diltiazem since PM of 10/21 - cont Coumadin, Metoprolol -will monitor INR -consult cardio. -checked trop for possible demand ischemia: markers are negative. Anticpate discharge on 10/23 Full code - Coumadin prophylaxis Spent 35 minutes in management of patient (2) Hypoxia: Subjective 63 yo female reports feeling better today. She states her cough has improved. She is breathing better, and her HR improved overnight back to sinus. Patient though does not feel ready to be discharged as of yet. Will want to ambulate more today. Review of Systems Review of Systems: All systems reviewed & are unremarkable except as noted in HPI & below Physical Exam Physical Exam: General: AAO x 3, no distress ENT: No erythema or exudates, no thrush Eyes: BUD, EOMI Head and neck: Normocephalic, atraumatic, No JVD, neck is supple. Chest/heart: Nontender, S1,2, RRR, no murmurs, no gallops Lungs: Rhonchi noted bilaterally. Abdomen: Nontender, nondistended, BS+ Neuro: AAO x 3, speech is clear, no unilateral weakness or loss of sensation, coordination intact Musculoskeletal: No joint inflammation, muscle tenderness, FROM Skin: No acute rashes or ulcers Extremities: No clubbing, cyanosis, edema Results & Data Vital Signs (Past 12 Hours) Vital Signs Temp Pulse Resp BP Pulse Ox 10/22/18 19:57 36.7 C 69 20 136/84 94 10/22/18 15:15 36.6 C 67 19 133/64 93 10/22/18 11:12 36.7 C 65 18 128/68 90 (1) Pneumonia Laterality: right Lung location: upper lobe of lung Pneumonia type: due to unspecified organism Qualified Code(s): J18.1 - Lobar pneumonia, unspecified organism
[2018-10-23] MEDS: AZITHROMYCIN 250 MG TAB PO SCH (07:29)
[2018-10-23] MEDS: METOPROLOL SUCC 50MG EXT REL TAB PO SCH (07:30)
[2018-10-23] MEDS: AMLODIPINE BESYLATE 5 MG TAB PO SCH (07:30)
[2018-10-23] MEDS: SERTRALINE HCL 100 MG TABLET PO SCH (07:30)
[2018-10-23] MEDS: ENALAPRIL MALEATE 10 MG TAB PO SCH (07:30)
[2018-10-23] MEDS ORDERED: predniSONE 20 MG TAB PO SCH (09:00)
--- NOTE | 2018-10-23 15:47 | Discharge Summary ---
Date of Service October 23, 2018 Admission HPI Per Admitting Provider 63 y/o F Hx paroxysmal AF, HTN, obese. She describes sinus congestion for a few weeks. Today she developed a cough and mild SOB and presented to an urgent care center for evaluation. When at the clinic she developed a hot flash. She states that this is not unusual for her and when this happens, she tends to lie down on the floor to cool off. Despite being at the urgent care center, she employed the same technique. This created some alarm at the clinic and she was diverted to the ER via ambulance. It was noted that her oxygen saturation was in the high 80s. She does believe she had a fever. She denies CP but does state that she had a run of AF the prior evening. A CXR did not reveal any acute abnormalities. A CTA was obtained due to her hypoxia and taking into consideration a recent trip to [place]. This did not reveal a PE, which is not entirely surprising considering she takes Coumadin daily, however, a RUL infiltrate became apparent. The pot had markedly improved following a few neb treatments in the ER. DC was considered, however, her oxygen saturation came down to 87% when she was ambulated around the ER. She also described some lightheadedness with exertion. PMH: 1) Paroxysmal AF 2) HTN 3) Morbid obesity Surgical: 1) Tonsillectomy 2) Ex lap due to enlarged ovary Social: Does not drink or smoke Family: Father - believed due to AL Mother due to CHF Principal Diagnosis Pneumonia with episode of afib with RVR Discharge Exam Constitutional WD/WN, vitals as above Eyes EOM intact bilaterally; no conjunctival abnormality ENMT external ear and nose normal, oropharynx normal Neck trachea midline, no thyromegaly normal visual inspection Respiratory normal respiratory effort, lungs clear to auscultation no respiratory distress Cardiovascular RRR, no murmur, no edema Gastrointestinal (Abdomen) Inspection/Auscultation: abdomen normal to inspection; abdomen not distended Musculoskeletal no cyanosis or clubbing, extremities motor strength 5/5 Skin no rashes, warm and dry Neurologic moves all extremities and awake Psychiatric Orientation: alert, oriented to person and cooperative Discharge Data Allergies Allergy/AdvReac Type Severity Reaction Status Date / Time clonazepam Allergy Unknown Unknown Verified 10/18/18 23:49 doxycycline Allergy Unknown Unknown Verified 10/18/18 23:50 moxifloxacin Allergy Unknown Unknown Verified 10/18/18 23:51 Consultations 10/20/18 11:44 Consult Cardiology Routine Ordered Studies 10/18/18 22:20 CT angio chest PE protocol Urgent Hospital Course (1) Pneumonia: Pneumonia with hypoxia - Given CAP abx (ceftriaxone and azithromycin) in the hospital. Only needs one more day of PO abx on discharge. Discharged on 1 day of Augmentin to finish course. - Prescribed Xopenex on discharge to help reduce chance of afib events. 2) Paroxysmal AF - Sinus on admission - Was in A. fib on 10/20 and 10/21 - Patient has required multiple doses of IV lopressor but improved on diltiazem drip. - Likely this was attributed to her nebs. - As outpatient, could consider anti-arrythmic per cardiology, but patient wanted to think about it first. - Continued Coumadin, Metoprolol (2) Hypoxia: Total Time Total Time Spent Total Time Spent (In Minutes): 35 Total Time Includes: Examination of the Patient and Medication Reconciliation Discharge Plan Discharge Items Patient Disposition: Home - Self-Care Reason For Visit: PNEUMONIA WITH HYPOXIA Discharge Diagnosis: Pneumonia and an episode of atrial fibrillation Discharge Goals: Decrease discomfort and Diagnostic testing Activity: Resume your previous activity Non-emergency contact: Primary Care Provider Call non-emergency contact if: you have any medication questions, your symptoms worsen and your pain is not controlled Follow-up/Referrals: PCP,NO [Primary Care Provider] - Diet: Regular Addtl Provider Instructions: Ms. Barcenas, You were admitted to the hospital with pneumonia causing low oxygen levels. We treated your pneumonia and your oxygen levels returned to normal. You also had an episode of atrial fibrillation which lasted longer than some of your prior episodes. Dr. Alvarado saw you and felt that you could benefit from a medication that prevents atrial fibrillation, but you preferred to think about this first. 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 Finally, you need one more day of antibiotic to be fully treated. Please take the first dose of Augmentin tonight (10/23) before bed, then tomorrow morning to be fully treated from a bacterial standpoint. We also prescribed a new inhaler to help with your shortness of breath that hopefully will not affect the heart. You should follow up with your PCP to consider pulmonary function tests (PFTs) as you told us that you often feel short of breath just walking to or from the apartment to your car. Prescriptions: New amoxicillin-pot clavulanate [Augmentin] 875-125 mg tablet 1 tab PO BID Qty: 2 RF: 0 levalbuterol tartrate [Xopenex HFA] 45 mcg/actuation HFA aerosol inhaler 1 inha INH Q6H PRN (Reason: shortness of breath) Qty: 15 RF: 0 Continued ferrous sulfate 325 mg (65 mg iron) Tablet 325 mg PO DAILY RF: 0 amlodipine-benazepril 5-20 mg Capsule 1 cap PO DAILY RF: 0 sertraline 100 mg Tablet 150 mg PO DAILY RF: 0 metoprolol succinate 50 mg Tablet Extended Release 24 Hr 50 mg PO DAILY RF: 0 warfarin 5 mg Tablet 5 mg PO DAILY RF: 0 scopolamine base [Transderm-Scop] 1 mg over 3 days Patch 3 Day 1.5 mg TRANSDERMAL Q72H PRN (Reason: travel only) RF: 0 coQ10 (ubiquinol) 100 mg Capsule 100 mg PO BID RF: 0 Ortho Biotic 20 units PO Q2D RF: 0 Arthro-8 Complex 1 dose pk PO DAILY RF: 0 [id number]-[id number] 333-133-8.3 mg Tablet 1 tab PO DAILY RF: 0 Discontinued aspirin 81 mg Tablet,Delayed Release (Dr/Ec) 81 mg PO DAILY RF: 0 Stand-Alone Forms: [facility] Discharge Orders: Discharge Order (Routine); Ordered 10/23/18 Ordered By: Ridge Melgar Admission Data Admit Date/Time: 10/19/18 00:26 Attending Provider: Ridge Melgar Admit Provider: Neri Arshad Primary Care Provider: PCP,NO Other Providers: Mane Alvarado Service: Telemetry Medical Other Interventions: Discharge Summary Assessment (RN) Last Done: 10/23/18 12:39 DC Date/Time DO NOT enter until pt leaves facility: 10/23/18 14:37
--- OUTSIDE RECORDS SUMMARY | 2018-10-23 20:53 | External Medical Summary | Continuity of Care Document ---
:1955 Author Name Medina Frias, Provider Address Unavailable Unavailable , Care Team Providers Name Role Phone Mellissa Frias, Reji Michelle Unavailable [email or web address] Unavailable Unavailable Unavailable Unavailable Unavailable Problems Depression (311) (F32.9) Restless legs syndrome (333.94) (G25.81) Generalized osteoarthritis of unspecified site (715.00) (M15 .9) Hypertension (401.9) (I10) Hyperlipidemia (272.4) (E78.5) Poor balance (781.99) (R26.89) Gait disturbance (781.2) (R26.9) Peripheral neuropathy (356.9) (G62.9) Vitamin B12 deficiency (266.2) (E53.8) Lumbar radiculopathy (724.4) (M54.16) Low back pain (724.2) (M54.5) Lower back pain (724.2) (M54.5) Vitamin D deficiency (268.9) (E55.9) Edema (782.3) (R60.9) Asthma (493.90) (J45.909) Obesity (278.00) (E66.9) Osteopenia (733.90) (M85.80) Dizziness (780.4) (R42) Atrial fibrillation (427.31) (I48.91) Anticoagulant long-term use (V58.61) (Z79.01) Palpitations (785.1) (R00.2) Allergies and Adverse Reactions Avelox TABS (Allergy) clonazePAM TABS (Allergy) Doxycycline Hyclate TABS (Allergy) Moxifloxacin HCl TABS (Allergy) Medications Co Q 10 CAPS; TAKE 1 CAPSULE Daily Refills: 0 Calcium 600-200 MG-UNIT Oral Tablet; Take 1 tablet daily Refills: 0 Probiotic Oral Capsule; TAKE 1 CAPSULE Daily Refills: 0 Vitamin B-12 1000 MCG/15ML Oral Liquid Refills: 0 Vitamin D3 5000 UNIT Oral Tablet; take 2 tabs every other da y Refills: 0 Aspirin 81 MG TABS; TAKE 1 TABLET DAILY. Refills: 0 amLODIPine Besy-Benazepril HCl - 5-20 MG Oral Capsule; TAKE 1 CAPSULE DAILY. Refills: 0 Sertraline HCl - 100 MG Oral Tablet; TAKE 1 AND 1/2 TABLETS (BY MOUTH) DAILY Refills: 0 Metoprolol Succinate ER 50 MG Oral Table t Extended Release 24 Hour; take 1 tablet by mouth once daily, may take an additional 1 tablet if experiencing palpitations Altagracia Malloy Quantity: 90 Refills: 3 Warfarin Sodium 5 MG Oral Tablet; TAKE 1 TABLET (5MG) DAILY OR DIRECTED Altagracia Malloy Start: 04-Apr-2015 Quantity: 1 90 Tablet Bottle Refills: 5 Procedures History of Colonoscopy (Fiberoptic) Stat us: Completed Immunizations Immunizations not documented Family History Mother Family history of Osteopenia Status: Active Father Family history of Diabetes Mellitus (V18.0) Status: Active Social History - Smoking Status Never smoker Plan of Treatment Planned Encounters Appointment; Reji Malloy M.D. Start: 11-Jul-2019 10:00 R equest Planned Observations Planned Goals not documented Results No Known Results Results not documented Vital Signs 23-Oct-2018 16:35 other 3.3 Comments: INR other 2.1875 Comments: INR Goal 13-Oct-2018 15:10 other 2.6 Comments: INR other 2.1875 Comments: INR Goal 07-Oct-2018 11:28 other 2.6 Comments: INR other 2.1875 Comments: INR Goal 28-Sep-2018 11:18 other 2.1 Comments: INR other 2.1875 Comments: INR Goal Encounters Appointment; [facility] 13-Jul-2018 10:30 Encounter Diagnosis: Problem not documented Appointment; [facility] 07-Jul-2018 10:30 Encounter Diagnosis: Problem not documented Appointment; Reji Malloy M.D. 28-Jun-2018 13:00 Encounter Diagnosis: Problem not documented Appointment; [facility] 28-Jun-2018 10:30 Encounter Diagnosis: Problem not documented Appointment; [facility] 21-Jun-2018 10:30 Encounter Diagnosis: Problem not documented Appointment; [facility] 14-Jun-2018 10:30 Encounter Diagnosis: Problem not documented Appointment; [facility] 07-Jun-2018 10:00 Encounter Diagnosis: Problem not documented Appointment; [facility] 01-Jun-2018 15:10 Encounter Diagnosis: Problem not documented Appointment; [facility] 02-May-2018 10:30 Encounter Diagnosis: Problem not documented Appointment; [facility] 26-Apr-2018 10:30 Encounter Diagnosis: Problem not documented Appointment; [facility] 19-Apr-2018 10:30 Encounter Diagnosis: Problem not documented Appointment; [facility] 12-Apr-2018 10:30 Encounter Diagnosis: Problem not documented Appointment; [facility] 05-Apr-2018 9:50 Encounter Diagnosis: Problem not documented Appointment; [facility] 30-Mar-2018 14:20 Encounter Diagnosis: Problem not documented Appointment; [facility] 22-Mar-2018 10:30 Encounter Diagnosis: Problem not documented Appointment; [facility] 15-Mar-2018 10:30 Encounter Diagnosis: Problem not documented Appointment; [facility] 08-Mar-2018 10:10 Encounter Diagnosis: Problem not documented Appointment; [facility] 01-Mar-2018 10:10 Encounter Diagnosis: Problem not documented Appointment; [facility] 23-Feb-2018 10:10 Encounter Diagnosis: Problem not documented Appointment; [facility] 15-Feb-2018 10:10 Encounter Diagnosis: Problem not documented Appointment; [facility] 08-Feb-2018 10:00 Encounter Diagnosis: Problem not documented Appointment; [facility] 01-Feb-2018 10:00 Encounter Diagnosis: Problem not documented Appointment; [facility] 19-Jan-2018 10:00 Encounter Diagnosis: Problem not documented Appointment; [facility] 11-Jan-2018 10:00 Encounter Diagnosis: Problem not documented Appointment; [facility] 04-Jan-2018 9:50 Encounter Diagnosis: Problem not documented Appointment; [facility] 29-Dec-2017 10:00 Encounter Diagnosis: Problem not documented Appointment; [facility] 21-Dec-2017 10:00 Encounter Diagnosis: Problem not documented Appointment; [facility] 15-Dec-2017 10:10 Encounter Diagnosis: Problem not documented Appointment; [facility] 07-Dec-2017 10:30 Encounter Diagnosis: Problem not documented Appointment; [facility] 30-Nov-2017 10:40 Encounter Diagnosis: Problem not documented Appointment; [facility] 23-Nov-2017 10:30 Encounter Diagnosis: Problem not documented Appointment; [facility] 14-Nov-2017 10:30 Encounter Diagnosis: Problem not documented Appointment; [facility] 25-Oct-2017 10:30 Encounter Diagnosis: Problem not documented Appointment; [facility] 19-Oct-2017 10:30 Encounter Diagnosis: Problem not documented Appointment; [facility] 05-Oct-2017 10:30 Encounter Diagnosis: Problem not documented Appointment; [facility] 30-Sep-2017 10:20 Encounter Diagnosis: Problem not documented Appointment; [facility] 22-Sep-2017 10:30 Encounter Diagnosis: Problem not documented Appointment; [facility] 16-Sep-2017 13:10 Encounter Diagnosis: Problem not documented Appointment; [facility] 07-Sep-2017 10:30 Encounter Diagnosis: Problem not documented Appointment; [facility] 31-Aug-2017 10:30 Encounter Diagnosis: Problem not documented Appointment; [facility] 26-Aug-2017 15:10 Encounter Diagnosis: Problem not documented Appointment; [facility] 10-Aug-2017 10:30 Encounter Diagnosis: Problem not documented Appointment; [facility] 27-Jul-2017 10:30 Encounter Diagnosis: Problem not documented Appointment; [facility] 13-Jul-2017 10:30 Encounter Diagnosis: Problem not documented Appointment; [facility] 29-Jun-2017 10:30 Encounter Diagnosis: Problem not documented Appointment; Reji Malloy M.D. 24-Jun-2017 15:45 Encounter Diagnosis: Problem not documented Appointment; [facility] 14-Jun-2017 15:00 Encounter Diagnosis: Problem not documented Appointment; [facility] 14-Jun-2017 9:00 Encounter Diagnosis: Problem not documented Appointment; Vira Patton DO 24-Nov-2016 9:20 Encounter Diagnosis: Problem not documented Appointment; Reji Malloy M.D. 11-Jul-2019 10:00 Encounter Diagnosis: Problem not documented
== END 2018-10-23 14:37 | disposition home or self-care (01) | DRG 194 ==
LOC: ED 20:35 → 2N 10-19 00:26 → SUATTDRO 10-19 00:26 → 2N 10-19 01:04 → 2E 10-21 14:09
DX: Z79.01 Long term (current) use of anticoagulants; Z79.82 Long term (current) use of aspirin; I48.0 Paroxysmal atrial fibrillation; J45.909 Unspecified asthma, uncomplicated; Z68.42 Body mass index [BMI] 45.0-49.9, adult; E66.01 Morbid (severe) obesity due to excess calories; J18.9 Pneumonia, unspecified organism